=== PATIENT | female | born 1995 | race American Indian/Alaskan Native ===

== ENCOUNTER 2019-05-21 09:40 | Emergency (ER) | payer SELFPAY ==
[2019-05-21 09:46] VITALS: BP 128/80
[2019-05-21 10:41] LABS: Amorphous Crystals,Urine Few; Bilirubin,Urine NEG (Negative); Blood,Urine NEG (Negative); Color,Urine Yellow (Yellow); Mucus,Urine FEW /HPF; Protein,Urine <15 mg/dL mg/dL (Negative); Urobilinogen,Urine < 2.0 mg/dL (<2.0)
[2019-05-21 11:07] LABS: HCG Qualitative,Urine Negative (Negative)
== END 2019-05-21 10:00 | disposition left against medical advice (07) ==
LOC: ED 09:40
DX: N89.8 Other specified noninflammatory disorders of vagina (principal); Z53.21 Procedure and treatment not carried out due to patient leaving prior to being seen by health care provider
CPT/HCPCS: 81001; 81025